=== PATIENT | male | born 2000 | race Caucasian/White ===

== ENCOUNTER → 2023-12-22 13:48 | Outpatient (REF) | payer BC, SELFPAY | LOC: MRI 3T 13:48 | PROVIDERS: ATTENDING PHYSICIAN Orthopaedic Surgery; FAMILY PHYSICIAN Nurse Practitioner Family | DX: M25.511 Pain in right shoulder (principal); M25.311 Other instability, right shoulder | CPT/HCPCS: 23350; 73040; 73222 ==

== ENCOUNTER → 2024-07-16 08:49 | Outpatient (REF) | payer BC, SELFPAY | LOC: RAD 08:49 | PROVIDERS: ATTENDING PHYSICIAN Nurse Practitioner Family | DX: R06.02 Shortness of breath (principal) | CPT/HCPCS: 71046 ==

== ENCOUNTER 2025-08-29 06:17 | Day surgery (SDC) | payer BC, SELFPAY ==
[2025-08-29] VITALS (12 sets, daily range): BP systolic 100–153; BP diastolic 56–103; BMI 31.1
[2025-08-29] MEDS: NORMOSOL-R/PLASMALYTE-A 1000 IV (09:30)
[2025-08-29] MEDS: DILAUDID 0.25 MG IV ×3 (13:40→14:16)
--- NOTE | 2025-08-29 16:13 | PTCARENOTE ---
Patient felt a little naseous after using the restroom. Patient layed back in bed provided a cold compress and a snack with more water. Patient feels batter after laying down.
== END 2025-08-29 16:45 | disposition home or self-care (01) ==
LOC: SDS 06:17
PROVIDERS: ATTENDING PHYSICIAN Otolaryngology
DX: J34.2 Deviated nasal septum (principal); J34.3 Hypertrophy of nasal turbinates; J34.89 Other specified disorders of nose and nasal sinuses
CPT/HCPCS: 30140; 30520; 88300; 88304; 88311